=== PATIENT | female | born 1990 | race Caucasian/White ===

== ENCOUNTER 2018-06-25 14:14 | Emergency (ER) | payer MEDICAID ==
[~2018-06-25] VITALS: Ht 154.9 cm; Wt 59.1 kg
[2018-06-25 14:18] VITALS: Ht 154.9 cm; Wt 59.1 kg
[2018-06-25 15:10] LABS: BASOPHILS 0.4 % (0-2); EOSINOPHILS 1.5 % (0-7); HEMATOCRIT 35.9 % (36.0-48.0); HEMOGLOBIN 12.2 g/dL (12-16); IMMATURE GRANULOCYTES 0.9 % (0-5); LYMPHOCYTES 32.7 % (15-50); MCH 29.1 pg (26.0-34.0); MCV 85.7 fL (80.0-100.0); MEAN PLATELET VOLUME 9.8 fL (7.4-10.4); MONOCYTES 8.1 % (2-11); NEUTROPHILS 56.4 % (40-80); PLATELET COUNT 108 10x3/uL (130-400); RBC 4.19 10x6/uL (4.00-5.40); WBC 7.8 10x3/uL (4.8-10.8)
[2018-06-25 15:43] LABS: ALBUMIN 3.5 g/dL (3.4-5.0); ALKALINE PHOSPHATASE 48 U/L (46-116); ALT (SGPT) 14 U/L (10-68); BILIRUBIN - TOTAL 0.13 mg/dL (0.2-1.3); CALC OSMOLALITY 277 mosm/kg (275-300); CALCIUM 8.4 mg/dL (8.5-10.1); CARBON DIOXIDE 26.5 mmol/L (21.0-32.0); CHLORIDE - SERUM 105 mmol/L (98-107); CREATININE - SERUM 0.8 mg/dL (0.6-1.3); MAGNESIUM - SERUM 2.1 mg/dL (1.8-2.4); POTASSIUM - SERUM 3.8 mmol/L (3.5-5.1); PROTEIN - SERUM 6.5 g/dL (6.4-8.2); SODIUM 141 mmol/L (136-145); UREA NITROGEN 11 mg/dL (7-18); eGFR NON AFRICAN AMERICAN 89 mL/min (90-120)
[2018-06-25 15:46] LABS: GLUCOSE 67 mg/dL (74-106)
[2018-06-25 17:38] LABS: UDS - AMPHET POSITIVE QUAL (NEGATIVE); UDS - BARB NEGATIVE QUAL (NEGATIVE); UDS - BENZO NEGATIVE QUAL (NEGATIVE); UDS - COCAINE NEGATIVE QUAL (NEGATIVE); UDS - OPIATE NEGATIVE QUAL (NEGATIVE); UDS - PCP NEGATIVE QUAL (NEGATIVE); UDS - THC POSITIVE QUAL (NEGATIVE)
[2018-06-25 17:47] LABS: HCG URINE NEGATIVE (NEGATIVE)
[2018-06-25 17:55] LABS: APPEARANCE CLOUDY (CLEAR); BILIRUBIN NEGATIVE (NEGATIVE); COLOR STRAW (YELLOW); GLUCOSE NEGATIVE (NEGATIVE); KETONE NEGATIVE (NEGATIVE); NITRITE POSITIVE (NEGATIVE); PROTEIN TRACE mg/dL (NEGATIVE); UROBILINOGEN NORMAL (NORMAL)
[2018-06-25 17:57] LABS: BACTERIA MANY /hpf (NONE SEEN); RED CELLS - URINE 0-5 /hpf (0-5); WHITE CELLS - URINE 0-5 /hpf (0-5)
[2018-06-25 19:06] VITALS: BP 104/63
== END 2018-06-25 19:07 | disposition home or self-care (01) ==
LOC: D.ER 14:14
PROVIDERS: Family Medicine
DX: F11.23 Opioid dependence with withdrawal (principal); T40.2X5A Adverse effect of other opioids, initial encounter; Y92.89 Other specified places as the place of occurrence of the external cause